=== PATIENT | male | born 1990 | race Caucasian/White ===

== ENCOUNTER 2016-11-06 18:30 | Emergency (ER) | payer MEDICAID ==
[~2016-11-06] VITALS: Ht 190.5 cm; Wt 81.6 kg
[~2016-11-06 18:30] MED LIST: AMOXICILLIN500 MG PO; AMOXIL250 MG/5 M PO; AUGMENTIN 875 M1 TAB PO; BACTRIM DS 8001 TA1 PO; CEPHALEXIN500 M1 PO; CIPRODEX 0.3%-7.5 ML OT; CLARITIN10 MG PO; CLINDAMYCIN HC300 MG PO; DARVOCET N 1001 TAB PO; FLEXERIL10 MG PO; FLEXERIL5 MG PO; FLONASE ALLERG9.9 ML NAS; HYDROCODONE BIT1 T11 PO; MOTRIN CHI100 MG/51 PO; MOTRIN800 MG PO; NAPROSYN500 MG PO; NKHM; NORFLEX100 MG PO; PERCOCET 325 MG1 TA2 PO; PREDNICOT20 MG PO; PREDNISONE10 MG PO; PROVENTIL0.09 MG/AC IH; ROBITUSSIN AC 110 ML PO; TESSALON PERLE100 M1 PO; ULTRAM50 MG PO; VICODIN 5/500 505 MG PO; ZITHROMAX Z PA250 MG PO; ZITHROMAX1 GM/PACKE PO; ZOFRAN ODT4 MG SL
[2016-11-06 18:40] VITALS: BP 123/44
[2016-11-06] MEDS ORDERED: CEPHALEXIN500 M1 PO (20:52)
== END 2016-11-06 22:57 | disposition home or self-care (01) ==
LOC: ED 18:30
DX: S81.812A Laceration without foreign body, left lower leg, initial encounter (principal); F17.200 Nicotine dependence, unspecified, uncomplicated; Z23 Encounter for immunization; W45.8XXA Other foreign body or object entering through skin, initial encounter; Y93.89 Activity, other specified; Y92.89 Other specified places as the place of occurrence of the external cause; Y99.8 Other external cause status

== ENCOUNTER 2016-11-10 21:55 | Emergency (ER) | payer OTHER ==
[~2016-11-10] VITALS: Ht 190.5 cm; Wt 82.6 kg
[2016-11-10 22:00] VITALS: BP 154/79
[2016-11-10] MEDS ORDERED: NORCO 5-325 TA1 EACH PO (22:25)
[2016-11-10] MEDS ORDERED: SEPTDS PO (22:25)
== END 2016-11-10 22:27 | disposition home or self-care (01) ==
LOC: ED 21:55
DX: S81.812D Laceration without foreign body, left lower leg, subsequent encounter (principal); F17.200 Nicotine dependence, unspecified, uncomplicated; X58.XXXD Exposure to other specified factors, subsequent encounter

== ENCOUNTER 2017-04-01 07:01 | Emergency (ER) | payer OTHER ==
[~2017-04-01] VITALS: Ht 187.9 cm; Wt 86.2 kg
[~2017-04-01 07:01] MED LIST changes: +NORCO 5-325 TA1 EACH PO; +SEPTDS PO
[2017-04-01 07:07] VITALS: BP 152/83
[2017-04-01] MEDS ORDERED: CYCLOBENZAPRINE10 MG PO (07:26)
== END 2017-04-01 07:31 | disposition home or self-care (01) ==
LOC: ED 07:01
DX: M54.5 Low back pain (principal); G89.29 Other chronic pain; F17.200 Nicotine dependence, unspecified, uncomplicated; Z79.899 Other long term (current) drug therapy

== ENCOUNTER 2017-09-04 16:03 | Emergency (ER) | payer OTHER ==
[~2017-09-04] VITALS: Ht 187.9 cm; Wt 81.6 kg
[~2017-09-04 16:03] MED LIST changes: +CYCLOBENZAPRINE10 MG PO
[2017-09-04 17:18] LABS: BILIRUBIN NEGATIVE (NEGATIVE); BLOOD TRACE-INTACT (NEGATIVE); CLARITY CLEAR (CLEAR); COLOR YELLOW (YELLOW); GLUCOSE NEGATIVE (NEGATIVE); KETONE NEGATIVE (NEGATIVE); LEUKO ESTERASE TRACE (NEGATIVE); NITRITE NEGATIVE (NEGATIVE); UROBILINOGEN 0.2 E.U./dl (0.2-1.0)
[2017-09-04 17:22] LABS: BASO # 0.1 10*3/uL (0.0-0.1); BASO % 1.2 % (0.0-1.0); EOS # 0.2 10*3/uL (0.0-0.4); EOS % 3.1 % (1.0-4.0); HEMOGLOBIN 14.8 g/dl (14.0-18.0); LYMPH # 1.8 10*3/uL (1.3-4.4); LYMPH % 22.6 % (27.0-41.0); MEAN CELL VOLUME 94.7 fl (80.0-94.0); MEAN CORPUSCULAR HGB 31.2 pg (27.0-31.0); MEAN CORPUSCULAR HGB CONC 32.9 g/dl (33.0-37.0); MEAN PLATELET VOLUME 10.5 fl (9.6-12.3); MONO # 0.9 10*3/uL (0.1-1.0); MONO % 11.1 % (3.0-9.0); NEUT # 4.8 10*3/uL (2.3-7.9); NEUT % 61.6 % (47.0-73.0); PLATELET COUNT AUTOMATED 282 10*3/uL (130-400); RED BLOOD COUNT 4.75 10*6/uL (4.50-5.90); RED CELL DISTRI WIDTH 13.3 % (0-14.5); WHITE BLOOD COUNT 7.8 10*3/uL (4.8-10.8)
[2017-09-04 17:25] LABS: BACTERIA TRACE; URINE AMPHETAMINES < 1000 (1000ng/ml); URINE BARBITURATES < 200 (200ng/ml); URINE BENZODIAZEPINES < 200 (200ng/ml); URINE CANNABINOIDS (THC) > 50 (50ng/ml); URINE COCAINE > 300 (300ng/ml); URINE METHADONE < 300 (300ng/ml); URINE OPIATES > 300 (300ng/ml); WBC 16-20 wbc/hpf (0-5)
[2017-09-04 17:33] LABS: URINE PHENCYCLIDINE < 25 (25ng/ml)
[2017-09-04 17:41] LABS: ALBUMIN 4.1 gm/dl (3.1-4.5); ALKALINE PHOSPHATASE 84 U/L (45-117); BUN 10 mg/dl (7-24); CHLORIDE 109 mmol/L (98-107); CREATININE 0.92 mg/dL (0.70-1.30); POTASSIUM 4.1 mmol/L (3.5-5.1); SGOT/AST 91 IU/L (3-35); SGPT/ALT 186 U/L (12-78); SODIUM 142 mmol/L (136-145); TOTAL PROTEIN 7.6 gm/dL (6.4-8.2)
[2017-09-04 17:43] LABS: ACETAMINOPHEN (TYLENOL) < 2.0 ug/ml (10-30); ETHYL ALCOHOL < 3.0 mg/dl (<3)
[2017-09-05 01:50] VITALS: BP 132/72
== END 2017-09-05 07:58 | disposition home health service (06) ==
LOC: ED 16:03
PROVIDERS: Physician Assistant
DX: R45.851 Suicidal ideations (principal); F41.9 Anxiety disorder, unspecified; F32.9 Major depressive disorder, single episode, unspecified; F14.90 Cocaine use, unspecified, uncomplicated; F11.90 Opioid use, unspecified, uncomplicated; F12.90 Cannabis use, unspecified, uncomplicated

== ENCOUNTER → 2017-11-20 | Outpatient (CLI) | payer OTHER | END | disposition home or self-care (01) | LOC: LAB 09:34 | DX: B19.20 Unspecified viral hepatitis C without hepatic coma (principal) ==

== ENCOUNTER → 2018-03-02 | Outpatient (CLI) | payer OTHER ==
[2018-03-02 13:42] LABS: BASO # 0.1 10*3/uL (0.0-0.1); BASO % 1.3 % (0.0-1.0); EOS # 0.3 10*3/uL (0.0-0.4); EOS % 3.1 % (1.0-4.0); HEMATOCRIT 46.8 % (42.0-52.0); HEMOGLOBIN 15.7 g/dl (14.0-18.0); LYMPH # 2.5 10*3/uL (1.3-4.4); LYMPH % 29.3 % (27.0-41.0); MEAN CELL VOLUME 95.9 fl (80.0-94.0); MEAN CORPUSCULAR HGB 32.2 pg (27.0-31.0); MEAN CORPUSCULAR HGB CONC 33.5 g/dl (33.0-37.0); MEAN PLATELET VOLUME 10.8 fl (9.6-12.3); MONO # 0.9 10*3/uL (0.1-1.0); MONO % 10.4 % (3.0-9.0); NEUT # 4.6 10*3/uL (2.3-7.9); NEUT % 55.3 % (47.0-73.0); PLATELET COUNT AUTOMATED 329 10*3/uL (130-400); RED BLOOD COUNT 4.88 10*6/uL (4.50-5.90); RED CELL DISTRI WIDTH 12.4 % (0-14.5); WHITE BLOOD COUNT 8.4 10*3/uL (4.8-10.8)
[2018-03-02 13:48] LABS: URINE AMPHETAMINES < 1000 (1000ng/ml); URINE BARBITURATES < 200 (200ng/ml); URINE BENZODIAZEPINES < 200 (200ng/ml); URINE CANNABINOIDS (THC) < 50 (50ng/ml); URINE COCAINE < 300 (300ng/ml); URINE METHADONE < 300 (300ng/ml); URINE OPIATES < 300 (300ng/ml)
[2018-03-02 13:49] LABS: URINE PHENCYCLIDINE < 25 (25ng/ml)
[2018-03-02 14:10] LABS: ALBUMIN 3.9 gm/dl (3.1-4.5); ALKALINE PHOSPHATASE 76 U/L (45-117); BUN 11 mg/dl (7-24); CHLORIDE 107 mmol/L (98-107); CREATININE 0.96 mg/dL (0.70-1.30); POTASSIUM 4.4 mmol/L (3.5-5.1); SGOT/AST 63 IU/L (3-35); SGPT/ALT 127 U/L (12-78); SODIUM 141 mmol/L (136-145); TOTAL PROTEIN 7.8 gm/dL (6.4-8.2)
== END | disposition home or self-care (01) ==
LOC: LAB 12:53
PROVIDERS: Nurse Practitioner Adult Health
DX: B19.20 Unspecified viral hepatitis C without hepatic coma (principal)

== ENCOUNTER → 2018-04-06 | Outpatient (CLI) | payer OTHER ==
[~2018-04-06] MED LIST changes: +ZOFRAN4 MG PO
[2018-04-06 21:51] LABS: HEMATOCRIT 43.1 % (42.0-52.0); HEMOGLOBIN 14.3 g/dl (14.0-18.0); MEAN CELL VOLUME 95.4 fl (80.0-94.0); MEAN CORPUSCULAR HGB 31.6 pg (27.0-31.0); MEAN CORPUSCULAR HGB CONC 33.2 g/dl (33.0-37.0); MEAN PLATELET VOLUME 10.9 fl (9.6-12.3); RED BLOOD COUNT 4.52 10*6/uL (4.50-5.90); RED CELL DISTRI WIDTH 12.7 % (0-14.5); WHITE BLOOD COUNT 8.9 10*3/uL (4.8-10.8)
[2018-04-06 22:11] LABS: ALBUMIN 3.9 gm/dl (3.1-4.5); ALKALINE PHOSPHATASE 76 U/L (45-117); BUN 8 mg/dl (7-24); CHLORIDE 110 mmol/L (98-107); CREATININE 0.85 mg/dL (0.70-1.30); POTASSIUM 3.3 mmol/L (3.5-5.1); SGOT/AST 82 IU/L (3-35); SGPT/ALT 147 U/L (12-78); SODIUM 144 mmol/L (136-145); TOTAL PROTEIN 7.9 gm/dL (6.4-8.2)
[2018-04-08 20:07] LABS: HCV LOG10 5.484 (.); HEPATITIS C QUANTITATION 305000 IU/mL (.)
== END | disposition home or self-care (01) ==
LOC: LAB 20:50
PROVIDERS: Nurse Practitioner
DX: B19.20 Unspecified viral hepatitis C without hepatic coma (principal)

== ENCOUNTER 2018-05-12 08:22 | Emergency (ER) | payer OTHER ==
[~2018-05-12] VITALS: Ht 187.9 cm; Wt 104.3 kg
[2018-05-12 08:22] VITALS: BP 131/69
[~2018-05-12 08:22] MED LIST changes: -ZOFRAN4 MG PO
[2018-06-10] MEDS ORDERED: ZOFRAN4 MG PO (22:05)
== END 2018-05-12 09:21 | disposition home or self-care (01) ==
LOC: ED 08:22
DX: S89.81XA Other specified injuries of right lower leg, initial encounter (principal); G89.29 Other chronic pain; M54.5 Low back pain; F12.90 Cannabis use, unspecified, uncomplicated; W01.0XXA Fall on same level from slipping, tripping and stumbling without subsequent striking against object, initial encounter; Y93.89 Activity, other specified; Y92.828 Other wilderness area as the place of occurrence of the external cause; Y99.9 Unspecified external cause status

== ENCOUNTER 2018-11-30 17:00 | Emergency (ER) | payer SELFPAY ==
[~2018-11-30] VITALS: Ht 190.5 cm; Wt 90.7 kg
[~2018-11-30 17:00] MED LIST changes: +ZOFRAN4 MG PO
[2018-11-30 17:01] VITALS: BP 138/75
[2018-11-30] MEDS ORDERED: ROBAXIN-750750 MG PO (19:27)
[2018-11-30] MEDS ORDERED: PREDNISONE20 M1 PO (19:27)
== END 2018-11-30 19:35 | disposition home or self-care (01) ==
LOC: ED 17:00
DX: S33.5XXA Sprain of ligaments of lumbar spine, initial encounter (principal); F17.200 Nicotine dependence, unspecified, uncomplicated; X50.0XXA Overexertion from strenuous movement or load, initial encounter; Y93.89 Activity, other specified; Y92.89 Other specified places as the place of occurrence of the external cause; Y99.8 Other external cause status

== ENCOUNTER 2019-08-19 07:07 | Emergency (ER) | payer OTHER ==
[~2019-08-19 07:07] MED LIST changes: +PREDNISONE20 M1 PO; +ROBAXIN-750750 MG PO
[2019-08-19 07:17] VITALS: BP 133/92
[2019-08-19] MEDS ORDERED: CYCLOBENZAPRINE10 MG PO (08:50)
[2019-08-19] MEDS ORDERED: POLYSPORIN OINT15 GM T (08:50)
[2019-08-19] MEDS ORDERED: TYLENOL325 M1 PO (08:50)
[2019-08-19] MEDS ORDERED: NAPROXEN250 MG PO (08:50)
== END 2019-08-19 09:02 | disposition home or self-care (01) ==
LOC: ED 07:07
DX: S16.1XXA Strain of muscle, fascia and tendon at neck level, initial encounter (principal); S20.219A Contusion of unspecified front wall of thorax, initial encounter; S30.810A Abrasion of lower back and pelvis, initial encounter; S40.212A Abrasion of left shoulder, initial encounter; S49.92XA Unspecified injury of left shoulder and upper arm, initial encounter; S09.90XA Unspecified injury of head, initial encounter; Z79.899 Other long term (current) drug therapy; X58.XXXA Exposure to other specified factors, initial encounter; Y93.89 Activity, other specified; Y92.89 Other specified places as the place of occurrence of the external cause; Y99.8 Other external cause status

== ENCOUNTER 2020-05-16 17:56 | Emergency (ER) | payer OTHER ==
[~2020-05-16] VITALS: Wt 90.7 kg
[~2020-05-16 17:56] MED LIST changes: +NAPROXEN250 MG PO; +POLYSPORIN OINT15 GM T; +TYLENOL325 M1 PO
[2020-05-16 18:31] VITALS: BP 117/72
[2020-05-16 19:31] LABS: HEMATOCRIT 43.1 % (42.0-52.0); MEAN CELL VOLUME 92.1 fl (80.0-94.0); MEAN CORPUSCULAR HGB CONC 33.6 g/dl (33.0-37.0); MEAN PLATELET VOLUME 10.6 fl (9.6-12.3); PLATELET COUNT AUTOMATED 262 10*3/uL (130-400); RED BLOOD COUNT 4.68 10*6/uL (4.50-5.90); RED CELL DISTRI WIDTH 13.1 % (0-14.5); WHITE BLOOD COUNT 5.6 10*3/uL (4.8-10.8)
[2020-05-16 19:52] LABS: ALBUMIN 3.7 gm/dl (3.1-4.5); ALKALINE PHOSPHATASE 72 U/L (45-117); BUN 11 mg/dl (7-24); CHLORIDE 108 mmol/L (98-107); CREATININE 0.98 mg/dL (0.70-1.30); POTASSIUM 3.5 mmol/L (3.5-5.1); SGOT/AST 12 IU/L (3-35); SGPT/ALT 15 U/L (12-78); SODIUM 139 mmol/L (136-145); TOTAL PROTEIN 7.1 gm/dL (6.4-8.2)
[2020-05-16 19:55] LABS: TROPONIN I < 0.015 ng/ml (<0.045)
[2020-05-16 20:04] LABS: TOTAL CELLS COUNTED 100 #CELLS
[2020-05-16 20:05] LABS: BURR CELLS FEW; PLATELET SUFFICIENCY NORMAL (NORMAL)
== END 2020-05-16 21:08 | disposition home or self-care (01) ==
LOC: ED 17:56
PROVIDERS: Nurse Practitioner
DX: U07.1 COVID-19 (principal); F17.200 Nicotine dependence, unspecified, uncomplicated; Z79.899 Other long term (current) drug therapy

== ENCOUNTER 2020-08-14 13:35 | Emergency (ER) | payer OTHER ==
[~2020-08-14] VITALS: Ht 187.9 cm; Wt 99.8 kg
[2020-08-14 13:42] VITALS: BP 132/76
[2020-08-14] MEDS ORDERED: PREDNISONE20 M1 PO (14:01)
== END 2020-08-14 14:08 | disposition home or self-care (01) ==
LOC: ED 13:35
DX: L23.7 Allergic contact dermatitis due to plants, except food (principal); Z79.899 Other long term (current) drug therapy

== ENCOUNTER 2022-10-01 05:22 | Emergency (ER) | payer OTHER ==
[~2022-10-01] VITALS: Ht 187.9 cm; Wt 99.8 kg
[2022-10-01 05:30] VITALS: BP 152/95
[2022-10-01 05:58] LABS: BASO # 0.1 10*3/uL (0.0-0.1); BASO % 1.3 % (0.0-1.0); EOS # 0.1 10*3/uL (0.0-0.4); EOS % 1.3 % (1.0-4.0); HEMATOCRIT 46.3 % (42.0-52.0); LYMPH # 1.9 10*3/uL (1.3-4.4); LYMPH % 30.4 % (27.0-41.0); MEAN CELL VOLUME 94.7 fl (80.0-94.0); MEAN CORPUSCULAR HGB 32.5 pg (27.0-31.0); MEAN CORPUSCULAR HGB CONC 34.3 g/dl (33.0-37.0); MEAN PLATELET VOLUME 9.7 fl (9.6-12.3); MONO # 0.5 10*3/uL (0.1-1.0); MONO % 8.7 % (3.0-9.0); NEUT # 3.6 10*3/uL (2.3-7.9); NEUT % 57.2 % (47.0-73.0); PLATELET COUNT AUTOMATED 337 10*3/uL (130-400); RED BLOOD COUNT 4.89 10*6/uL (4.50-5.90); RED CELL DISTRI WIDTH 13.3 % (0-14.5); WHITE BLOOD COUNT 6.2 10*3/uL (4.8-10.8)
[2022-10-01 06:25] LABS: ALKALINE PHOSPHATASE 84 U/L (46-116); BUN 9 mg/dl (9-23); CHLORIDE 105 mmol/L (98-107); LIPASE 28 U/L (12-53); POTASSIUM 3.9 mmol/L (3.4-5.1); SGPT/ALT 59 U/L (10-49); TOTAL PROTEIN 8.1 gm/dL (6.0-8.0)
[2022-10-01 06:28] LABS: ACT PARTIAL THROMBO TIME 28.2 SECONDS (20.0-32.1)
[2022-10-01] MEDS ORDERED: FLOMAX0.4 MG PO (06:40)
== END 2022-10-01 06:51 | disposition home or self-care (01) ==
LOC: ED 05:22
PROVIDERS: Internal Medicine
DX: N20.0 Calculus of kidney (principal); R51.9 Headache, unspecified; R11.2 Nausea with vomiting, unspecified; Z98.890 Other specified postprocedural states; Z79.899 Other long term (current) drug therapy

== ENCOUNTER 2024-04-01 18:57 | Emergency (ER) | payer BC ==
[~2024-04-01] VITALS: Wt 108.9 kg
[~2024-04-01 18:57] MED LIST changes: +FLOMAX0.4 MG PO
[2024-04-01 19:36] VITALS: BP 143/83
[2024-04-01] MEDS ORDERED: Ondansetron4 MG PO (19:59)
== END 2024-04-01 20:15 | disposition home or self-care (01) ==
LOC: ED 18:57
DX: A08.4 Viral intestinal infection, unspecified (principal); R09.89 Other specified symptoms and signs involving the circulatory and respiratory systems; Z79.899 Other long term (current) drug therapy

== ENCOUNTER 2024-10-16 04:25 | Emergency (ER) | payer SELFPAY ==
[~2024-10-16] VITALS: Ht 187.9 cm; Wt 106.6 kg
[~2024-10-16 04:25] MED LIST changes: +Ondansetron4 MG PO
[2024-10-16] MEDS ORDERED: Ondansetron Hydrochloride 4 MG TAB PO ONE (04:50)
[2024-10-16] MEDS ORDERED: Acetaminophen/Oxycodone Hydr 7.5 MG/325 MG TABLET PO ONE (04:50)
[2024-10-16 05:35] VITALS: BP 129/87
[2024-10-16] MEDS ORDERED: Vibra-Tab100 MG PO (06:20)
[2024-10-16] MEDS ORDERED: HYDROCODONE-AC1 EAC1 PO (06:20)
[2024-10-16] MEDS ORDERED: Ondansetron4 MG PO (06:20)
== END 2024-10-16 06:50 | disposition home or self-care (01) ==
LOC: ED 04:25
DX: S22.41XD Multiple fractures of ribs, right side, subsequent encounter for fracture with routine healing (principal); J18.9 Pneumonia, unspecified organism; X58.XXXD Exposure to other specified factors, subsequent encounter